=== PATIENT | male | born 1975 | race Caucasian/White ===

== ENCOUNTER → 2019-06-06 | Day surgery (SDC) | payer BC ==
[~2019-06-06] MED LIST: NORCO 5-325 TA1 EAC1 PO; ZANTAC 150MG T150 MG PO
--- NOTE | ~2019-06-06 | OP ---
[facility] [address] [place] [address] OPERATIVE REPORT Name: BOWEN ELI Room: [facility].#: [id number] Admission: 06/06/19 Attend Phys: Orlando Lim Discharge: Date of : 71 Report #: [id number] THIS REPORT FOR: //name// CC: Orlando Cruz DATE OF SERVICE: 06/06/2019 PREOPERATIVE DIAGNOSIS: Symptomatic cholelithiasis. POSTOPERATIVE DIAGNOSIS: Symptomatic cholelithiasis. PROCEDURE: Laparoscopic cholecystectomy. SURGEON: Orlando Lim MD ANESTHESIA: General. ESTIMATED BLOOD LOSS: Minimal. SPECIMEN: Gallbladder. DESCRIPTION OF PROCEDURE: After informed consent was obtained, the patient was brought to the operating room and placed supine. SCDs were placed and working, preoperative antibiotics were administered, general anesthesia was induced. The abdomen was prepped and draped in the usual sterile fashion. A 10 mm incision was made below the umbilicus. Fascia was incised and a trocar was placed. Pneumoperitoneum was established. Three right upper quadrant 5 mm ports were placed. Gallbladder was grasped at the fundus and retracted cephalad. Infundibulum was grasped and retracted laterally. I dissected out the cystic duct, cystic artery, and the cystic plate. The cystic duct and artery were clipped and ligated leaving two clips on the remaining duct and one on the remaining artery. Gallbladder was then taken off the liver bed with electrocautery. It was placed into an Endopouch and removed. Fascia was then closed with a [id number] 0 Vicryl. Skin was closed with 4-0 Monocryl. Incisions were sealed with Dermabond. COMPLICATIONS: None. DISPOSITION: The patient was taken to recovery in satisfactory condition. By: [id number] Lim MD /nt
--- NOTE | 2019-06-09 16:06 | PATH ---
[address] [address] PATHOLOGY RPT PROCEDURE Name: BOWEN DUKES Room: [facility]..#: [id number] Admission: 06/06/19 Date of : 71 Discharge: Report #: [id number] Path Case #: [id number] [facility] Accession Number: [id number] . 01 Material submitted: . gallbladder - GALLBLADDER . 01 Clinical history: . Calculus of gallbladder. . 02 Diagnosis: Gallbladder: - Chronic cholecystitis and cholelithiasis. (REYNOLD:vickey; 06/09/2019) R 06/09/2019 1335 Local . 02 Electronically signed: . Ronaldo Friedman MD, Pathologist NPI- [id number] . 01 Gross description: . Received in formalin labeled "Bowen Dukes gallbladder" is an intact cholecystectomy specimen measuring 7.8 x 3.6 x 2.3 cm. The serosa is tristan-pink and smooth and the specimen is opened to reveal green-brown velvety mucosa without polyps or masses. The average wall thickness is 0.1 cm. Calculi are present, which are brown-black and multifaceted, measuring in aggregate 5.0 x 3.8 x 1.2 cm, and ranging from 0.6-1.2 cm in greatest dimension. Planned Giving Officer sections of the fundus and body and the cystic duct margin are submitted in A1. ([facility]07[place] [facility] 06/07/2019 12[facility] . 02 Pathologist provided ICD-10: K80.10 . 02 CPT . 777492 Specimen Comment: A courtesy copy of this report has been sent to Specimen Comment: [phone], . Specimen Comment: Report sent to / DR STEEL Performed at: [address], [place], [place] [id number] MD Henri Murray MD Phone: [phone] [facility]formed at: [facility] [address], [place], [place] [id number] MD Ronaldo Friedman MD Phone: [phone]
== END | disposition home or self-care (01) ==
LOC: M.SUR 08:52
DX: K80.10 Calculus of gallbladder with chronic cholecystitis without obstruction (principal); Z79.899 Other long term (current) drug therapy